=== PATIENT | male | born 1960 | race Caucasian/White ===

== ENCOUNTER 2018-11-01 08:52 | Outpatient (CLI) | payer OTHER, SELFPAY ==
[2018-11-01 10:22] LABS: Anion Gap 11.4 mmol/L (3-11); BUN 19 mg/dL (7-18); CO2 24.6 mmol/L (21.0-32.0); CREATININE 0.85 mg/dL (0.70-1.30); Calcium 8.1 mg/dL (8.5-10.1); Calculated LDL 78 mg/dL; Chloride 105 mmol/L (98-107); Cholesterol 137 mg/dL (50-200); Glucose 104 mg/dL (70-100); HDL Cholesterol 51 mg/dL (40-60); Potassium 4.1 mmol/L (3.5-5.1); Sodium 141 mmol/L (136-145); Triglyceride 41 mg/dL (30-150)
== END 2018-11-01 09:12 ==
PROVIDERS: PCP Family Medicine; Visit Provider Family Medicine
DX: Z00.00 Encounter for general adult medical examination without abnormal findings (principal)
CPT/HCPCS: 36415; 80048; 80061; 83721

== ENCOUNTER 2018-11-10 03:01 | Outpatient (CLI) | payer OTHER, SELFPAY ==
--- NOTE | 2018-11-10 15:00 | DI.US_ITS ---
SYMPTOMS/DIAGNOSIS: LOCALIZED SWELLING ON RT LEG, R22.41, PAINLESS SWELLING ON RIGHT FIBULRA HEAD, ? GANGLION CYST OR BONE LESION SOFT TISSUE ULTRASOUND: Soft tissue ultrasound was performed to evaluate a palpable area of abnormality on the lateral aspect of the right knee. Ultrasound shows a cystic lesion measuring 2 x 0.6 x 2.4 cm. Doppler evaluation shows no evidence of vascularity. CONCLUSION: Palpable abnormality of the right lateral knee appears to be cystic in nature. No solid lesion identified.
--- NOTE | 2018-11-10 15:19 | DI.RAD_ITS ---
SYMPTOMS/DIAGNOSIS: LOCALIZED PAINLESS SWELLING ON RIGHT LEG, FIBULAR HEAD, R22.41, BUMP ON RIGHT KNEE LATERAL SIDE WITHOUT PAIN RIGHT KNEE: Three views were obtained. Cartilaginous joint spaces appear fairly well maintained as visualized. No bony abnormality seen. No evidence of a knee joint effusion.
== END 2018-11-10 03:21 ==
PROVIDERS: PCP Family Medicine; Visit Provider Family Medicine
DX: R22.41 Localized swelling, mass and lump, right lower limb (principal); M79.89 Other specified soft tissue disorders; M25.861 Other specified joint disorders, right knee
CPT/HCPCS: 73562; 76881

== ENCOUNTER → 2018-11-21 09:28 | Outpatient (BNVA) | payer OTHER, SELFPAY | PROVIDERS: PCP Family Medicine; Referring Provider Family Medicine; Visit Provider Student in an Organized Health Care Education/Training Program | DX: M67.40 Ganglion, unspecified site (principal) | CPT/HCPCS: 99204 ==

== ENCOUNTER 2018-12-06 02:04 | Outpatient (CLI) | payer OTHER, SELFPAY ==
--- NOTE | 2018-12-06 11:00 | NS.NUTBLAN_ITS ---
DESCRIPTION:? González Christy presents for nutrition?consult for new diagnosis of Prediabetes with fasting blood sugar now improved to 104mg/dl.? ACTIVITY:? González is now retired?and able to perform?cardiovascular activity 8-10 hours per week.? He has lost 30 pounds recently. FOOD:? Oatmeal with flax meal; sandwich with peanut butter, sardines or tuna or green smoothies made of drew, peanut butter, soy milk and marta seeds.? Supper is beans and rice, resendez soup, quinoa, and 3 days a week he has frozen pot pies and a side of vegetables.? Has large pizza with lots of cheese on Saturdays; and a variety of meats but not daily. He is interested in cooking and nutrition and has many food questions He denies significant stress; grows a garden. INTERVENTION:? Focused on his questions as he is already achieving the goals of the diabetes prevention program PREVENT T2. Reviewed diabetes food guide per his request; discussed glycemic index.? Reviewed mindful eating practices. Discussed different types of exercise for strength and balance. PLAN:? González will increase his fruits and vegetables to at least 5 servings per day; near half his plate as vegetables.He knows to call with questions.
== END 2018-12-06 02:24 ==
PROVIDERS: PCP Family Medicine; Visit Provider Dietitian, Registered
DX: R73.03 Prediabetes (principal); Z71.3 Dietary counseling and surveillance
CPT/HCPCS: 97802

== ENCOUNTER 2021-12-21 10:48 | Outpatient (REF) | payer OTHER, SELFPAY ==
[2021-12-21 15:55] LABS: Hemoglobin A1C 5.9 % (<5.7)
[2021-12-22 10:04] LABS: HIV-1/2 Ag & Ab Screen Negative (Negative)
[2021-12-22 10:13] LABS: Hepatitis C Ab w Rflx HCV PCR Negative (Negative)
== END 2021-12-21 10:49 | disposition home or self-care (01) ==
LOC: NCHCN 10:48
PROVIDERS: PCP Family Medicine; Visit Provider Family Medicine
DX: R73.03 Prediabetes (principal); Z00.00 Encounter for general adult medical examination without abnormal findings; Z11.59 Encounter for screening for other viral diseases; Z11.4 Encounter for screening for human immunodeficiency virus [HIV]
CPT/HCPCS: 86803; 87389; 83036

== ENCOUNTER 2023-01-17 08:55 | Outpatient (CLI) | payer OTHER, SELFPAY | END 2023-01-17 08:56 | disposition home or self-care (01) | PROVIDERS: PCP Family Medicine; Visit Provider Family Medicine | DX: R55 Syncope and collapse (principal); R00.0 Tachycardia, unspecified | CPT/HCPCS: 93270 ==

== ENCOUNTER 2023-02-25 08:41 | Outpatient (CLI) | payer OTHER, SELFPAY ==
--- NOTE | 2023-02-25 08:45 | W.CARDEVENT ---
Date of service: 02/25/23 Time of Service: 08:46 Cardiac Event Recorder Referring Provider:: Shamika Indications:: tachycardia & syncope Cardiac Event Note: This is a 30-day cardiac event monitor ordered for syncope and palpitations. The underlying rhythm was sinus with minimum heart rate of 38 bpm and maximum heart rate of 139 bpm. All bradycardias and tachycardias were physiologic, occurring during sleep or with activity respectively.. No arrhythmias were detected.
== END 2023-02-25 08:42 | disposition home or self-care (01) ==
LOC: CARDOPNVT 08:41
PROVIDERS: PCP Family Medicine; Visit Provider Internal Medicine Interventional Cardiology
DX: R00.0 Tachycardia, unspecified (principal); R55 Syncope and collapse
CPT/HCPCS: 00123

== ENCOUNTER 2023-09-01 15:06 | Outpatient (REF) | payer OTHER, SELFPAY ==
[2023-09-01 15:39] LABS: Anion Gap 9.5 mmol/L (3-11); BUN 12 mg/dL (7-18); CO2 26.5 mmol/L (21.0-32.0); CREATININE 1.1 mg/dL (0.70-1.30); Calcium 8.8 mg/dL (8.5-10.1); Chloride 105 mmol/L (98-107); Estimated GFR 75.43 (mL/min/1.73m2); Glucose 102 mg/dL (74-106); Sodium 141 mmol/L (136-145)
== END 2023-09-01 15:07 | disposition home or self-care (01) ==
LOC: NCHCN 15:06
PROVIDERS: PCP Family Medicine; Visit Provider Family Medicine
DX: I10 Essential (primary) hypertension (principal)
CPT/HCPCS: 80048

== ENCOUNTER 2024-01-13 09:19 | Outpatient (REF) | payer OTHER, SELFPAY ==
[2024-01-13 15:19] LABS: Hemoglobin A1C 5.8 % (<5.7)
[2024-01-13 15:22] LABS: Calculated LDL 69 mg/dL (<100); Cholesterol 146 mg/dL (<200); HDL Cholesterol 51 mg/dL (40-60); Triglyceride 131 mg/dL (<150)
== END 2024-01-13 09:20 | disposition home or self-care (01) ==
LOC: NCHCN 09:19
PROVIDERS: PCP Family Medicine; Visit Provider Family Medicine
DX: E78.5 Hyperlipidemia, unspecified (principal); E66.3 Overweight
CPT/HCPCS: 80061; 83036

== ENCOUNTER 2025-01-14 14:17 | Outpatient (REF) | payer MEDICARE, OTHER, SELFPAY ==
[2025-01-14 21:23] LABS: HCT 44.3 % (40.0-50.0); HGB 14.7 g/dL (13.5-17.5); MCH 28.8 pg (27.0-33.0); MCHC 33.2 % (32.0-36.0); MCV 87 fL (80-95); MPV 10.8 fL (8.0-11.0); Platelet Count 265 10^3/uL (130-400); RBC 5.10 10^6/uL (4.36-5.78); RDW 12.9 % (11.8-14.1); RDW-SD 40.3 fL; WBC 6.44 10^3/uL (4.4-10.8)
[2025-01-14 21:52] LABS: Anion Gap 13.0 mmol/L (3-11); BUN 15 mg/dL (7-18); CO2 25.0 mmol/L (21.0-32.0); Calcium 8.8 mg/dL (8.5-10.1); Chloride 103 mmol/L (98-107); Glucose 119 mg/dL (74-106); Potassium 4.4 mmol/L (3.5-5.1); Sodium 141 mmol/L (136-145); TSH (W/Ref FT4) 1.85 uIU/mL (0.36-3.74)
[2025-01-14 21:53] LABS: Hemoglobin A1C 6.0 % (<5.7)
== END 2025-01-14 14:18 | disposition home or self-care (01) ==
LOC: NCHCN 14:17
PROVIDERS: PCP Family Medicine; Visit Provider Family Medicine
DX: R53.83 Other fatigue (principal); I10 Essential (primary) hypertension; R73.03 Prediabetes
CPT/HCPCS: 80048; 85027; 83036; 84443